=== PATIENT | male | born 1945 | race American Indian/Alaskan Native ===

== ENCOUNTER 2016-05-19 15:37 | Outpatient (CLI) | payer MEDICARE | END 2016-05-19 15:38 | disposition home or self-care (01) | LOC: LABHHL 15:37 | PROVIDERS: ATTEND Internal Medicine Gastroenterology | DX: K21.9 Gastro-esophageal reflux disease without esophagitis (principal); R63.4 Abnormal weight loss; R10.13 Epigastric pain; Z85.028 Personal history of other malignant neoplasm of stomach | CPT/HCPCS: 88305 ==

== ENCOUNTER 2018-01-27 07:07 | Day surgery (SDC) | payer MEDICARE ==
[2018-01-27] MEDS ORDERED: WATER FOR IRRIG STERILE IR ONE (07:08)
[2018-01-27] MEDS ORDERED: NACL 0.9% 1000 ML 1,000 ML IV SCH (08:00)
[2018-01-27] MEDS ORDERED: DIPRIVAN 10 MG/ML IV ONE ×2 (08:25→12:24)
--- NOTE | 2018-01-27 09:23 | Anesthesia Day of Surgery ---
Anesthesia Day of Surgery - Day of Surgery Patient Examined: Yes Patient H&P Reviewed: Yes Patient is NPO: Yes Beta Blockers: No
--- NOTE | 2018-01-27 09:24 | Anesthesia Consultation ---
Anesthesia Consult and Med Hx Date of service: 01/27/18 - Airway Anesthetic Teeth Evaluation: Partials ROM Head & Neck: Adequate Mental/Hyoid Distance: Adequate Mallampati Class: Class III Intubation Access Assessment: Probably Good - Pulmonary Exam CTA: Yes - Cardiac Exam Cardiac Exam: No Murmur - Pre-Operative Health Status ASA Pre-Surgery Classification: ASA3 Proposed Anesthetic Plan: MAC - Pulmonary Hx Smoking: Yes COPD: Yes Hx Sleep Apnea: No - Cardiovascular System Hx Hypertension: Yes (10+ YRS) Hx Coronary Artery Disease: Yes - Central Nervous System Hx Psychiatric Problems: Yes - Hematic Hx Anemia: Yes - Other Systems Hx Alcohol Use: No Hx Substance Use: No Hx Cancer: No
--- NOTE | 2018-01-27 09:32 | Short Stay Summary ---
Short Stay Documentation - Allergies and Medications Current Medications: Allergies Sulfa (Sulfonamide Antibiotics) Allergy (Verified 11/04/17 14:13) Swelling Home Medications Medication Instructions Recorded Confirmed Last Taken Type ALBUTEROL Inhaler (OR & NICU) 2 puff IH QID PRN 11/27/14 01/27/18 Unknown History [ProAir HFA Inhaler] Calcium Carbonate/Vitamin D3 1 each PO DAILY 11/27/14 01/27/18 01/26/18 History [Calcium 600 + D Tablet] Cholecalciferol Vit D3 [Vitamin D3] 1,000 unit PO QDAY 11/27/14 01/27/18 History Esomeprazole Magnesium [NexIUM] 40 mg PO QDAY 11/27/14 01/27/18 01/26/18 History Fluticasone [Flonase] 2 spray NS QDAY 11/27/14 01/27/18 01/24/18 History Folic Acid 0.4 mg PO QDAY 11/27/14 01/27/18 01/26/18 History Losartan [Cozaar] 100 mg PO QDAY 11/27/14 01/27/18 01/27/18 History Mometasone Furoate [Elocon] 1 applicatio TP QDAY PRN 11/27/14 01/27/18 01/26/18 History Rosuvastatin (Nf) [Crestor] 20 mg PO QHS 11/27/14 01/27/18 01/26/18 History Solifenacin Succinate [Vesicare] 5 mg PO QDAY 11/27/14 01/27/18 01/26/18 History Thiamine [Vitamin B-1] 100 mg PO QDAY 11/27/14 01/27/18 01/26/18 History Zolpidem [Ambien] 5 mg PO QHS PRN 11/27/14 01/27/18 01/26/18 History busPIRone [Buspar] 10 mg PO TID 11/27/14 01/27/18 01/26/18 History traZODone [Desyrel] 50 mg PO QHS 11/27/14 01/27/18 01/26/18 History Active Medications Sodium Chloride (Nacl 0.9% 1000 Ml) 1,000 mls @ 50 mls/hr IV DIRECT DAVID Last Admin: 01/27/18 08:05 Dose: 50 mls/hr - Brief post op/procedure progress note Date of procedure: 01/27/18 Pre-op diagnosis: Colon cancer screening Post-op diagnosis: same (EGD: 1. GERD 2. Gastric node at anastomosis 3. Gastritis Colonoscopy: Poor prep 2. Diverticulosis 3. Internal hemorrhoids) Procedure: 1. EGD with biopsy 2. Colonoscopy Anesthesia: MAC Findings: as above Surgeon: MAYNOR HARRIS Estimated blood loss: none Pathology: list (1. gastric node at anastomosis) Specimen disposition: to lab Condition: stable - Disposition Condition at discharge: Stable Disposition: DC- TO HOME OR SELFCARE Short Stay Discharge Plan Activity: no restrictions Weight Bearing Status: Full Weight Bearing Diet: regular, low salt Follow up with: MARIA DEL CARMEN PAK MD [Primary Care Provider] - 7 Days
[2018-01-27 09:49] VITALS: BP 156/73
== END 2018-01-27 07:08 | disposition home or self-care (01) ==
LOC: GIO 07:07
PROVIDERS: ATTEND Internal Medicine Gastroenterology
DX: Z12.11 Encounter for screening for malignant neoplasm of colon (principal); K57.30 Diverticulosis of large intestine without perforation or abscess without bleeding; K21.9 Gastro-esophageal reflux disease without esophagitis; D13.1 Benign neoplasm of stomach; K64.8 Other hemorrhoids; K29.70 Gastritis, unspecified, without bleeding; R10.13 Epigastric pain; I25.10 Atherosclerotic heart disease of native coronary artery without angina pectoris; E78.00 Pure hypercholesterolemia, unspecified; F17.210 Nicotine dependence, cigarettes, uncomplicated; I10 Essential (primary) hypertension; J44.9 Chronic obstructive pulmonary disease, unspecified; M19.90 Unspecified osteoarthritis, unspecified site; F32.9 Major depressive disorder, single episode, unspecified; Z98.890 Other specified postprocedural states; Z86.2 Personal history of diseases of the blood and blood-forming organs and certain disorders involving the immune mechanism; Z88.2 Allergy status to sulfonamides; Z79.899 Other long term (current) drug therapy; Z98.49 Cataract extraction status, unspecified eye; Z85.028 Personal history of other malignant neoplasm of stomach; Z86.010 Personal history of colon polyps
CPT/HCPCS: 43239; 88305; 88342; G0105; J2704; J7030

== ENCOUNTER 2018-10-13 15:28 | Emergency (ER) | payer MEDICARE ==
[2018-10-13 16:27] LABS: Hematocrit 41.4 % (35.5-45.6); Hemoglobin 14.5 gm/dl (11.8-15.2); Mean Corpuscular HGB Conc 35 % (32-34); Mean Corpuscular Volume 100 fl (84-94); Platelet Count 138 K/mm3 (140-440); Red Blood Count 4.14 M/mm3 (3.65-5.03); Red Cell Distribution Width 13.9 % (13.2-15.2)
[2018-10-13 16:48] LABS: BUN/Creatinine Ratio 13; Blood Urea Nitrogen 8 mg/dL (9-20); Calcium 9.6 mg/dL (8.4-10.2); Hemolysis Index 35
--- NOTE | 2018-10-13 16:56 | Emergency Department Report ---
ED Psych HPI - General Chief Complaint: Psych Stated Complaint: MEDICAL CLEARENCE Time Seen by Provider: 10/13/18 16:51 Source: patient, EMS Mode of arrival: Stretcher Limitations: No Limitations - History of Present Illness Initial Comments: Patient is a 73-year-old male that presents emergency room for medical clearance from [facility]. Patient states he was sent over here to be medically cleared to go into the volunteer program. Patient states he has been drinking for 3 days straight and taking cocaine. Patient patient complains of anxiety. Patient states having withdrawal symptoms. Patient states drinking and using drugs for many years. Patient's daughters at bedside. I have reviewed the [facility] intake form. Per [facility] intake form patient took Ambien, alcohol, cocaine and oxycodone with the intent of committing suicide. Patient states he did think about it but is not having suicidal ideations at this time. MD Complaint: suicidal ideation, feels depressed -: Sudden Associated Psychiatric Symptoms: depression, suicidal ideation History of same: No Quality: constant Improves With: none Worsens With: none Context: recent alcohol abuse, recent drug abuse Associated Symptoms: denies other symptoms. denies: confusion, headache, shortness of breath, nausea, vomiting, syncope, insomnia Treatments Prior to Arrival: placed on mental he If Self Harm: admits thoughts of, has plan, has acted on plan, intentional overdose - Related Data Home Medications Medication Instructions Recorded Confirmed Last Taken ALBUTEROL Inhaler (OR & NICU) 2 puff IH QID PRN 11/27/14 01/27/18 Unknown [ProAir HFA Inhaler] Calcium Carbonate/Vitamin D3 1 each PO DAILY 11/27/14 01/27/18 01/26/18 [Calcium 600 + D Tablet] Cholecalciferol Vit D3 [Vitamin D3] 1,000 unit PO QDAY 11/27/14 01/27/18 01/26/18 Esomeprazole Magnesium [NexIUM] 40 mg PO QDAY 11/27/14 01/27/18 01/26/18 Fluticasone [Flonase] 2 spray NS QDAY 11/27/14 01/27/18 01/24/18 Folic Acid 0.4 mg PO QDAY 11/27/14 01/27/18 01/26/18 Losartan [Cozaar] 100 mg PO QDAY 11/27/14 01/27/18 01/27/18 Mometasone Furoate [Elocon] 1 applicatio TP QDAY PRN 11/27/14 01/27/18 01/26/18 Rosuvastatin (Nf) [Crestor] 20 mg PO QHS 11/27/14 01/27/18 01/26/18 Solifenacin Succinate [Vesicare] 5 mg PO QDAY 11/27/14 01/27/18 01/26/18 Thiamine [Vitamin B-1] 100 mg PO QDAY 11/27/14 01/27/18 01/26/18 Zolpidem [Ambien] 5 mg PO QHS PRN 11/27/14 01/27/18 01/26/18 busPIRone [Buspar] 10 mg PO TID 11/27/14 01/27/18 01/26/18 traZODone [Desyrel] 50 mg PO QHS 11/27/14 01/27/18 01/26/18 Allergies Allergy/AdvReac Type Severity Reaction Status Date / Time Sulfa (Sulfonamide Allergy Swelling Verified 11/04/17 14:13 Antibiotics) ED Review of Systems ROS: Stated complaint: MEDICAL CLEARENCE Other details as noted in HPI Constitutional: denies: chills, fever Eyes: denies: eye pain, eye discharge, vision change ENT: denies: ear pain, throat pain Respiratory: denies: cough, shortness of breath, wheezing Cardiovascular: denies: chest pain, palpitations Endocrine: no symptoms reported Gastrointestinal: denies: abdominal pain, nausea, diarrhea Genitourinary: denies: urgency, dysuria Musculoskeletal: denies: back pain, joint swelling, arthralgia Skin: denies: rash, lesions Neurological: denies: headache, weakness, paresthesias Psychiatric: denies: anxiety, depression Hematological/Lymphatic: denies: easy bleeding, easy bruising ED Past Medical Hx - Past Medical History Previous Medical History?: Yes Hx Hypertension: Yes (10+ YRS) Hx Diabetes: (PREDIABETIC; ) Hx Deep Vein Thrombosis: Yes Hx GERD: Yes Hx of Cancer: Yes (stomach) Hx Arthritis: Yes (BACK) Hx COPD: Yes - Surgical History Past Surgical History?: Yes Additional Surgical History: surgery for stomach cancer - Social History Smoking Status: Current Every Day Smoker Substance Use Type: Alcohol, Cocaine, Prescribed - Medications Home Medications: Home Medications Medication Instructions Recorded Confirmed Last Taken Type ALBUTEROL Inhaler (OR & NICU) 2 puff IH QID PRN 11/27/14 01/27/18 Unknown History [ProAir HFA Inhaler] Calcium Carbonate/Vitamin D3 1 each PO DAILY 11/27/14 01/27/18 01/26/18 History [Calcium 600 + D Tablet] Cholecalciferol Vit D3 [Vitamin D3] 1,000 unit PO QDAY 11/27/14 01/27/18 01/26/18 History Esomeprazole Magnesium [NexIUM] 40 mg PO QDAY 11/27/14 01/27/18 01/26/18 History Fluticasone [Flonase] 2 spray NS QDAY 11/27/14 01/27/18 01/24/18 History Folic Acid 0.4 mg PO QDAY 11/27/14 01/27/18 01/26/18 History Losartan [Cozaar] 100 mg PO QDAY 11/27/14 01/27/18 01/27/18 History Mometasone Furoate [Elocon] 1 applicatio TP QDAY PRN 11/27/14 01/27/18 01/26/18 History Rosuvastatin (Nf) [Crestor] 20 mg PO QHS 11/27/14 01/27/18 01/26/18 History Solifenacin Succinate [Vesicare] 5 mg PO QDAY 11/27/14 01/27/18 01/26/18 History Thiamine [Vitamin B-1] 100 mg PO QDAY 11/27/14 01/27/18 01/26/18 History Zolpidem [Ambien] 5 mg PO QHS PRN 11/27/14 01/27/18 01/26/18 History busPIRone [Buspar] 10 mg PO TID 11/27/14 01/27/18 01/26/18 History traZODone [Desyrel] 50 mg PO QHS 11/27/14 01/27/18 01/26/18 History ED Physical Exam - General Limitations: No Limitations General appearance: alert, in no apparent distress - Head Head exam: Present: atraumatic, normocephalic - Eye Eye exam: Present: normal appearance - ENT ENT exam: Present: mucous membranes moist - Neck Neck exam: Present: normal inspection - Respiratory Respiratory exam: Present: normal lung sounds bilaterally. Absent: respiratory distress - Cardiovascular Cardiovascular Exam: Present: regular rate, normal rhythm. Absent: systolic murmur, diastolic murmur, rubs, gallop - GI/Abdominal GI/Abdominal exam: Present: soft, normal bowel sounds - Rectal Rectal exam: Present: deferred - Extremities Exam Extremities exam: Present: normal inspection - Back Exam Back exam: Present: normal inspection - Neurological Exam Neurological exam: Present: alert, oriented X3 - Psychiatric Psychiatric exam: Present: depressed. Absent: homicidal ideation, suicidal ideation - Skin Skin exam: Present: warm, dry, intact, normal color. Absent: rash ED Course Vital Signs 10/13/18 10/13/18 16:19 19:36 Temperature 98.4 F 98.7 F Pulse Rate 66 97 H Respiratory 18 18 Rate Blood Pressure 156/84 Blood Pressure 136/66 [Right] O2 Sat by Pulse 100 98 Oximetry - Reevaluation(s) Reevaluation #1: Initial evaluation done. Patient placed on 1013 due to the fact the patient has a document from [facility] stating that he had a suicide attempt this morning via overdose. 10/13/18 17:05 Patient is medically cleared. Patient will remain on 1013 until accepted into appropriate psychiatric facility. Discussed all results with patient. Patient will maintain in the ER on 1013.. Patient agrees to plan of care. 10/13/18 22:44 ED Medical Decision Making - Lab Data Result diagrams: 10/13/18 16:09 10/13/18 16:09 - Medical Decision Making Patient is a 73-year-old male presents to [facility] for detox. Upon initial evaluation and review of the report from the local psychiatric facility that sent the patient here, the patient had complained to them about a suicide attempt by overdose, thus the patient was placed on a 1013 in the ER. Patient had labs which were unremarkable except for UDS positive for cocaine and a positive blood alcohol. Patient is medically cleared and could be transported to a local psychiatric clinic for further evaluation and and psychiatric treatment and detox. - Differential Diagnosis suicide attempt. Suicide ideation. Depression. Alcohol intoxication. Critical victor hugo attestation.: If time is entered above; I have spent that time in minutes in the direct care of this critically ill patient, excluding procedure time. ED Disposition Clinical Impression: Suicide attempt, Suicidal ideation, Drug abuse, Alcohol abuse Acute alcohol intoxication Qualifiers: Complication of substance-induced condition: uncomplicated Qualified Code(s): F10.920 - Alcohol use, unspecified with intoxication, uncomplicated Disposition: [id number]/[id number] PSY HOSP/PSY UNIT Is pt being admited?: No Does the pt Need Aspirin: No Condition: Serious Additional Instructions: Patient is medically cleared Referrals: SHIV FORDE MD [Primary Care Provider] - 3-5 Days Time of Disposition: 23:03
[2018-10-13 17:16] LABS: Total Cells Counted 100
[2018-10-13 17:17] LABS: Basophils % (Manual) 0 % (0.0-1.8)
[2018-10-13 17:18] LABS: Anisocytosis Few; Platelet Estimate Consistent w Auto; Target Cells Rare
[2018-10-13 17:19] LABS: Ovalocytes Rare
[2018-10-13] MEDS ORDERED: ATIVAN IV ONE (17:25)
[2018-10-13] MEDS ORDERED: ATIVAN IV PRN ×2 (19:38)
[2018-10-13 19:40] VITALS: BP 136/66
[2018-10-13 20:44] LABS: Bacteria,Urine 1+ /HPF (Negative); Bilirubin,Urine NEG (Negative); Blood,Urine NEG (Negative); Color,Urine Yellow (Yellow); Mucus,Urine FEW /HPF; Protein,Urine <15 mg/dL mg/dL (Negative); Urobilinogen,Urine < 2.0 mg/dL (<2.0)
[2018-10-13 20:50] LABS: Amphetamine Screen,Urine PRESUMPTIVE NEGATIVE; Benzodiazepines Screen,Urine PRESUMPTIVE NEGATIVE; Cannabinoid Screen,Urine PRESUMPTIVE NEGATIVE; Methadone Screen,Urine PRESUMPTIVE NEGATIVE; Opiate Screen,Urine PRESUMPTIVE NEGATIVE
[2018-10-13 21:09] LABS: Cocaine Screen,Urine PRESUMPTIVE POSITIVE
== END 2018-10-14 00:06 ==
LOC: ED 15:28
DX: T42.6X2A Poisoning by other antiepileptic and sedative-hypnotic drugs, intentional self-harm, initial encounter (principal); T40.2X2A Poisoning by other opioids, intentional self-harm, initial encounter; T51.92XA Toxic effect of unspecified alcohol, intentional self-harm, initial encounter; F41.9 Anxiety disorder, unspecified; F32.9 Major depressive disorder, single episode, unspecified; F10.920 Alcohol use, unspecified with intoxication, uncomplicated; I10 Essential (primary) hypertension; K21.9 Gastro-esophageal reflux disease without esophagitis; M46.90 Unspecified inflammatory spondylopathy, site unspecified; J44.9 Chronic obstructive pulmonary disease, unspecified; F17.200 Nicotine dependence, unspecified, uncomplicated; F14.90 Cocaine use, unspecified, uncomplicated; Z86.718 Personal history of other venous thrombosis and embolism; Z85.028 Personal history of other malignant neoplasm of stomach; Z79.899 Other long term (current) drug therapy; Z88.2 Allergy status to sulfonamides; Y92.89 Other specified places as the place of occurrence of the external cause
CPT/HCPCS: 36415; 80048; 80307; 81001; 85007; 85025; 96374; 99285; G0480; J2060; 80320